=== PATIENT | female | born 1970 | race Caucasian/White ===

== ENCOUNTER 2024-05-04 20:23 | Emergency (ER) | payer BC, OTHER ==
[2024-05-04] MEDS: Ketorolac 30 MG/ML SDV IM ONE (21:07)
[2024-05-04] MEDS: Acetaminophen 500 MG Tab PO ONE (21:09)
[2024-05-04] MEDS: Take Home: Amoxicillin/Clavulanate K 875-125 MG Tab, 6 Tab Pack PO ONE (21:29)
[2024-05-05 03:11] VITALS: BP 135/87; PULSE 86
== END 2024-05-04 21:25 | disposition home or self-care (01) ==
LOC: DL.ED 20:23
DX: K04.7 Periapical abscess without sinus (principal); Z90.710 Acquired absence of both cervix and uterus; Z79.2 Long term (current) use of antibiotics; Z79.899 Other long term (current) drug therapy
CPT/HCPCS: 96372; 99282; A9270; J1885